=== PATIENT | male | born 1995 | race Two or more races ===

== ENCOUNTER 2024-06-26 18:41 | Emergency (ER) | payer SELFPAY ==
[~2024-06-26] VITALS: Ht 188 cm; Wt 136.9 kg
[2024-06-26 18:51] VITALS: BP 137/68; PULSE 93; RESP 16; TEMP 99.1; O2SAT 96
[2024-06-26] MEDS ORDERED: AMOX875T4 PO (20:45)
[2024-06-26] MEDS: TETANUS-DIPTH-ACEL PERTUSSIS 0.5ML SYR Tdap IM ONE (20:45)
[2024-06-26] MEDS ORDERED: ACET500T58 PO (20:45)
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
[2024-06-26] MEDS: LIDOCAINE 1% HCL (LOCAL ANESTH.) INJ 20ML MDV ID ONE (21:20)
[2024-06-26] MEDS: cefTRIAXone SOD 1,000 MG VL IM ONE (21:30)
== END 2024-06-26 21:44 | disposition home or self-care (01) ==
LOC: ER 18:41
DX: S01.511A Laceration without foreign body of lip, initial encounter (principal); Z90.49 Acquired absence of other specified parts of digestive tract; W26.8XXA Contact with other sharp object(s), not elsewhere classified, initial encounter; Y93.89 Activity, other specified; Y92.89 Other specified places as the place of occurrence of the external cause; Y99.8 Other external cause status
CPT/HCPCS: 12013; 96372; 99283; J0696; J2003; 90715